=== PATIENT | male | born 1950 | race Caucasian/White ===

== ENCOUNTER 2019-05-17 06:57 | Inpatient (IN) | payer MEDICARE ==
[2019-05-17] VITALS (7 sets, daily range): BP systolic 122–145; BP diastolic 53–82
[~2019-05-17] VITALS: Ht 172.7 cm; Wt 59.9 kg
[2019-05-17 07:40] LABS: BASO # 0.1 10*3/uL (0.0-0.1); BASO % 1.3 % (0.0-1.0); EOS # 0.1 10*3/uL (0.0-0.4); EOS % 1.5 % (1.0-4.0); HEMATOCRIT 45.2 % (42.0-52.0); HEMOGLOBIN 14.4 g/dl (14.0-18.0); LYMPH # 1.7 10*3/uL (1.3-4.4); LYMPH % 30.8 % (27.0-41.0); MEAN CORPUSCULAR HGB 28.3 pg (27.0-31.0); MEAN CORPUSCULAR HGB CONC 31.9 g/dl (33.0-37.0); MONO # 0.4 10*3/uL (0.1-1.0); NEUT # 3.2 10*3/uL (2.3-7.9); NEUT % 59.2 % (47.0-73.0); PLATELET COUNT AUTOMATED 268 10*3/uL (130-400); RED BLOOD COUNT 5.08 10*6/uL (4.50-5.90); RED CELL DISTRI WIDTH 13.5 % (0-14.5); WHITE BLOOD COUNT 5.4 10*3/uL (4.8-10.8)
[2019-05-17 07:50] LABS: ACT PARTIAL THROMBO TIME 28.2 SECONDS (20.0-32.1)
[2019-05-17 07:59] LABS: ALBUMIN 3.9 gm/dl (3.1-4.5); ALKALINE PHOSPHATASE 48 U/L (45-117); BUN 17 mg/dl (7-24); CHLORIDE 107 mmol/L (98-107); CREATININE 1.17 mg/dL (0.70-1.30); LIPASE 213 U/L (73-393); POTASSIUM 3.8 mmol/L (3.5-5.1); SGOT/AST 19 IU/L (3-35); SGPT/ALT 25 U/L (12-78); SODIUM 139 mmol/L (136-145)
[2019-05-17 08:04] LABS: TROPONIN I < 0.015 ng/ml (<0.045)
[2019-05-17] MEDS ORDERED: ATENOLOL25 MG PO (09:53)
[2019-05-18] VITALS: BP 137/80
[2019-05-18 06:48] LABS: BASO # 0.1 10*3/uL (0.0-0.1); BASO % 1.2 % (0.0-1.0); EOS # 0.2 10*3/uL (0.0-0.4); EOS % 3.7 % (1.0-4.0); HEMATOCRIT 40.7 % (42.0-52.0); LYMPH # 1.6 10*3/uL (1.3-4.4); LYMPH % 24.7 % (27.0-41.0); MEAN CELL VOLUME 89.1 fl (80.0-94.0); MEAN CORPUSCULAR HGB 28.4 pg (27.0-31.0); MEAN CORPUSCULAR HGB CONC 31.9 g/dl (33.0-37.0); MEAN PLATELET VOLUME 10.3 fl (9.6-12.3); MONO # 0.5 10*3/uL (0.1-1.0); MONO % 7.8 % (3.0-9.0); NEUT # 4.1 10*3/uL (2.3-7.9); NEUT % 62.3 % (47.0-73.0); PLATELET COUNT AUTOMATED 253 10*3/uL (130-400); RED BLOOD COUNT 4.57 10*6/uL (4.50-5.90); RED CELL DISTRI WIDTH 13.5 % (0-14.5); WHITE BLOOD COUNT 6.6 10*3/uL (4.8-10.8)
[2019-05-18 07:08] LABS: ALBUMIN 3.4 gm/dl (3.1-4.5); ALKALINE PHOSPHATASE 51 U/L (45-117); BUN 12 mg/dl (7-24); CHLORIDE 110 mmol/L (98-107); CHOLESTEROL 218 mg/dL (<200); CREATININE 0.85 mg/dL (0.70-1.30); HDL CHOLESTEROL 40 mg/dl (40-60); LDL CHOLESTEROL 154 mg/dL (9-159); POTASSIUM 3.7 mmol/L (3.5-5.1); SGOT/AST 16 IU/L (3-35); SGPT/ALT 19 U/L (12-78); SODIUM 140 mmol/L (136-145); TOTAL PROTEIN 6.7 gm/dL (6.4-8.2); TRIGLYCERIDES 121 mg/dl (<150); VLDL CHOLESTEROL 24 mg/dL (6-40)
[2019-05-18 09:00] VITALS: BP 140/92
== END 2019-05-18 10:00 | disposition home or self-care (01) | DRG 641 ==
LOC: ED 06:57 → EDHOLD 08:30 → 4E 08:30
PROVIDERS: Emergency Medicine; Student in an Organized Health Care Education/Training Program; ADMIT Internal Medicine
DX: E86.0 Dehydration (principal); E44.0 Moderate protein-calorie malnutrition; I95.1 Orthostatic hypotension; J43.9 Emphysema, unspecified; R73.9 Hyperglycemia, unspecified; E83.41 Hypermagnesemia; I10 Essential (primary) hypertension; Z87.891 Personal history of nicotine dependence; Z82.49 Family history of ischemic heart disease and other diseases of the circulatory system; Z79.899 Other long term (current) drug therapy; Z68.20 Body mass index [BMI] 20.0-20.9, adult

== ENCOUNTER 2019-12-25 13:14 | Emergency (ER) | payer MEDICARE ==
[~2019-12-25] VITALS: Wt 61.2 kg
[~2019-12-25 13:14] MED LIST: ATENOLOL25 MG PO
[2019-12-25 14:31] LABS: BILIRUBIN NEGATIVE; BLOOD NEGATIVE (NEGATIVE); CLARITY CLEAR (CLEAR); COLOR YELLOW (YELLOW); GLUCOSE NEGATIVE; KETONE 1+; LEUKO ESTERASE 2+ (NEGATIVE); NITRITE NEGATIVE (NEGATIVE); PH 7.5 (4.5-8.0); SPECIFIC GRAVITY 1.015 (1.001-1.030)
[2019-12-25 14:39] LABS: BACTERIA 1+; EPITHELIAL CELLS 0-2; RBC 0-2 rbc/hpf (0-2); WBC 16-20 wbc/hpf (0-5)
== END 2019-12-25 17:22 | disposition short-term general hospital (02) ==
LOC: ED 13:14
PROVIDERS: Nurse Practitioner Family
DX: S22.32XA Fracture of one rib, left side, initial encounter for closed fracture (principal); J93.9 Pneumothorax, unspecified; W11.XXXA Fall on and from ladder, initial encounter; Y93.89 Activity, other specified; Y92.89 Other specified places as the place of occurrence of the external cause; Y99.8 Other external cause status

== ENCOUNTER 2020-01-18 16:39 | Observation (INO) | payer MEDICARE ==
[~2020-01-18] VITALS: Ht 172.7 cm; Wt 59.1 kg
[2020-01-18 16:48] VITALS: BP 137/83
[2020-01-18 17:52] LABS: BASO # 0.1 10*3/uL (0.0-0.1); BASO % 0.5 % (0.0-1.0); EOS % 0.2 % (1.0-4.0); LYMPH # 0.9 10*3/uL (1.3-4.4); LYMPH % 6.6 % (27.0-41.0); MEAN CELL VOLUME 87.2 fl (80.0-94.0); MEAN CORPUSCULAR HGB 27.5 pg (27.0-31.0); MEAN CORPUSCULAR HGB CONC 31.5 g/dl (33.0-37.0); MEAN PLATELET VOLUME 8.6 fl (9.6-12.3); MONO # 0.8 10*3/uL (0.1-1.0); MONO % 5.8 % (3.0-9.0); NEUT # 12.3 10*3/uL (2.3-7.9); NEUT % 86.4 % (47.0-73.0); PLATELET COUNT AUTOMATED 493 10*3/uL (130-400); RED BLOOD COUNT 4.47 10*6/uL (4.50-5.90); RED CELL DISTRI WIDTH 12.8 % (0-14.5); WHITE BLOOD COUNT 14.2 10*3/uL (4.8-10.8)
[2020-01-18 18:02] LABS: ACT PARTIAL THROMBO TIME 30.8 SECONDS (20.0-32.1)
[2020-01-18 18:08] LABS: ALBUMIN 3.1 gm/dl (3.1-4.5); ALKALINE PHOSPHATASE 207 U/L (45-117); BUN 12 mg/dl (7-24); CHLORIDE 101 mmol/L (98-107); CREATININE 0.87 mg/dL (0.70-1.30); LIPASE 183 U/L (73-393); POTASSIUM 3.6 mmol/L (3.5-5.1); SGOT/AST 14 IU/L (3-35); SGPT/ALT 28 U/L (12-78); SODIUM 135 mmol/L (136-145); TOTAL PROTEIN 8.3 gm/dL (6.4-8.2)
[2020-01-18 18:13] LABS: TROPONIN I < 0.015 ng/ml (<0.045)
--- NOTE | 2020-01-18 19:14 | NUR ---
REPORT FROM LASHONDA. PT. RESTING IN BED, IN NO DISTRESS. CALL LIGHT IN REACH, WILL CONT TO MONITOR.
[2020-01-18 19:44] LABS: BILIRUBIN Negative; BLOOD Negative (NEGATIVE); CLARITY Clear (CLEAR); COLOR Dark Yellow (YELLOW); GLUCOSE Negative; KETONE Negative; LEUKO ESTERASE Negative (NEGATIVE); NITRITE Negative (NEGATIVE); SPECIFIC GRAVITY 1.025 (1.001-1.030)
[2020-01-18 19:50] LABS: BACTERIA TRACE; EPITHELIAL CELLS 0-2; MUCOUS 2+; WBC 0-2 wbc/hpf (0-5)
[2020-01-18 20:00] VITALS: BP 142/84
--- NOTE | 2020-01-18 21:01 | NUR ---
PT. RESTING IN BED. AT BEDSIDE. CALL LIGHT IN REACH. WILL CONT TO MONITOR. IN NO DISTRESS AT THIS TIME. RR EASY AND NON LABORED.
--- NOTE | 2020-01-18 21:48 | NUR ---
PT. UP AND TO RESTROOM
[2020-01-18 22:40] VITALS: BP 142/84
--- NOTE | 2020-01-18 22:50 | NUR ---
Time: 2239 A 69 year old MALE admitted to [facility] under services of THAI VILLEGAS DO. Pt. arrived via stretcher from [place]. Chief complaint: fatigue, numbness. CEASAR ALVAREZ
--- NOTE | 2020-01-19 04:00 | NUR ---
PATIENT SLEEPING, NO SIGNS OF DISTRESS. RESPIRATIONS EASY.NON LABORED. BED IN LOWEST POSITION, CALL LIGHT WITHIN REACH. WILL CONTINUE TO MONITOR.
[2020-01-19 06:03] LABS: BUN 10 mg/dl (7-24); CHLORIDE 103 mmol/L (98-107); CREATININE 0.72 mg/dL (0.70-1.30); POTASSIUM 3.6 mmol/L (3.5-5.1); SODIUM 136 mmol/L (136-145)
[2020-01-19 06:06] LABS: HEMATOCRIT 36.9 % (42.0-52.0); MEAN CELL VOLUME 86.2 fl (80.0-94.0); MEAN CORPUSCULAR HGB 27.3 pg (27.0-31.0); MEAN CORPUSCULAR HGB CONC 31.7 g/dl (33.0-37.0); MEAN PLATELET VOLUME 9.2 fl (9.6-12.3); PLATELET COUNT AUTOMATED 482 10*3/uL (130-400); RED BLOOD COUNT 4.28 10*6/uL (4.50-5.90); WHITE BLOOD COUNT 15.4 10*3/uL (4.8-10.8)
[2020-01-19 06:11] LABS: THYROID STIM HORMONE (HS) 0.613 uIU/ml (0.358-4.75)
[2020-01-19 06:30] LABS: VITAMIN D, 25-HYDROXY 35.7 ng/mL (30-100)
[2020-01-19 06:39] LABS: PLATELET SUFFICIENCY HIGH (NORMAL); TOTAL CELLS COUNTED 100 #CELLS
[2020-01-19 08:00] VITALS: BP 136/76
--- NOTE | 2020-01-19 09:47 | NUR ---
Makeup Instructor in to talk to patient. Patient states lives at HOME with . There are 12 steps in the home. Physician: LASHONDA DAVILA Pharmacy: [facility] Home health services: NONE Patient's level of ADLs: INDEPENDENT Patient has working utilities: YES DME: [facility] IF NEEDED Follow-up physician's appointment after d/c: WILL BE MADE BY RN HOSPITALIST COORDINATOR Does patient want to access PORTAL?: NO Discharge plan PATIENT LIVES AT HOME WTH HIS . PATIENT STATES HE WILL RETURN HOME WHEN DISCUSSING HOME HEALTH AND SNF. PATIENT STATES HIS WILL TRANSPORT HIM WHEN HE IS DISCHARGED. PATIENT HAS NO NEEDS AT THIS TIME. SHALONDA RIDLEY
[2020-01-19 12:00] VITALS: BP 126/68
[2020-01-19 16:00] VITALS: BP 154/79
[2020-01-19 20:00] VITALS: BP 116/84
[2020-01-20] VITALS: BP 135/85
--- NOTE | 2020-01-20 04:43 | NUR ---
PATIENT SLEEPING; SNORING RESPS ON ROOM AIR, EASY AND REGULAR. WILL CONT TO MONITOR/
[2020-01-20 06:05] LABS: ALBUMIN 2.7 gm/dl (3.1-4.5); ALKALINE PHOSPHATASE 200 U/L (45-117); BUN 14 mg/dl (7-24); CHLORIDE 107 mmol/L (98-107); POTASSIUM 3.4 mmol/L (3.5-5.1); SGOT/AST 19 IU/L (3-35); SGPT/ALT 32 U/L (12-78); SODIUM 139 mmol/L (136-145); TOTAL PROTEIN 7.6 gm/dL (6.4-8.2)
[2020-01-20 06:08] LABS: BASO # 0.1 10*3/uL (0.0-0.1); BASO % 0.7 % (0.0-1.0); EOS # 0.1 10*3/uL (0.0-0.4); EOS % 0.7 % (1.0-4.0); HEMATOCRIT 38.2 % (42.0-52.0); LYMPH # 1.6 10*3/uL (1.3-4.4); LYMPH % 13.1 % (27.0-41.0); MEAN CORPUSCULAR HGB 27.3 pg (27.0-31.0); MEAN CORPUSCULAR HGB CONC 31.7 g/dl (33.0-37.0); MEAN PLATELET VOLUME 9.2 fl (9.6-12.3); MONO % 8.5 % (3.0-9.0); NEUT # 9.1 10*3/uL (2.3-7.9); NEUT % 76.7 % (47.0-73.0); PLATELET COUNT AUTOMATED 469 10*3/uL (130-400); RED BLOOD COUNT 4.44 10*6/uL (4.50-5.90); RED CELL DISTRI WIDTH 12.8 % (0-14.5); WHITE BLOOD COUNT 11.8 10*3/uL (4.8-10.8)
--- NOTE | 2020-01-20 07:45 | NUR ---
24 HR chart check completed.
[2020-01-20 08:00] VITALS: BP 133/80
--- NOTE | 2020-01-20 08:30 | NUR ---
RESTING IN BED WITH NO DISTRESS NOTED. RESPIRATIONS EASY. LUNGS DIMINISHED, CLEAR. PULSE OX 97% RA. DENIES SOB. CALL LIGHT WITHIN REACH. NO VOICED COMPLAINTS
[2020-01-20] MEDS ORDERED: DOXYCYCLINE100 MG PO (10:09)
--- NOTE | 2020-01-20 11:00 | NUR ---
Discharge instructions reviewed with patient. Patient receptive and verbalizes understanding. Written instructions given to patient. OFFERED WC FOR D/C, PATIENT DECLINED STATING HE WOULD PREFER TO AMBULATE OFF FLOOR. WAITING AT ENTRANCE LESLY AVILA
--- NOTE | 2020-01-21 08:20 | NUR ---
Nursing referral received and chart reviewed. Patient discharged from hospital before OT evaluation could be completed. Eve Francisco OTR/l
== END 2020-01-20 11:00 | disposition home or self-care (01) ==
LOC: ED 16:39 → EDHOLD 22:06 → 4E 22:06 → EDHOLD 22:06 → 4E 22:52
PROVIDERS: Nurse Practitioner Family; Student in an Organized Health Care Education/Training Program; ADMIT Emergency Medicine; ATTEND Emergency Medicine
DX: J18.9 Pneumonia, unspecified organism (principal); R53.1 Weakness; R53.83 Other fatigue; R20.2 Paresthesia of skin; D72.829 Elevated white blood cell count, unspecified; D64.9 Anemia, unspecified; E87.1 Hypo-osmolality and hyponatremia; E83.41 Hypermagnesemia; D47.3 Essential (hemorrhagic) thrombocythemia; R74.8 Abnormal levels of other serum enzymes; R79.82 Elevated C-reactive protein (CRP); E44.1 Mild protein-calorie malnutrition; I71.4 Abdominal aortic aneurysm, without rupture; N28.0 Ischemia and infarction of kidney; I10 Essential (primary) hypertension; J44.9 Chronic obstructive pulmonary disease, unspecified; R73.9 Hyperglycemia, unspecified

== ENCOUNTER 2022-12-18 05:48 | Emergency (ER) | payer MEDICARE ==
[~2022-12-18] VITALS: Ht 172.7 cm; Wt 60.3 kg
[~2022-12-18 05:48] MED LIST changes: +CLOPIDOGREL75 MG PO; +CRESTOR20 M1 PO; +DOXYCYCLINE100 MG PO; +LISINOPRIL5 MG PO
[2022-12-18 06:31] LABS: BASO # 0.1 10*3/uL (0.0-0.1); BASO % 1.2 % (0.0-1.0); EOS % 0.2 % (1.0-4.0); HEMATOCRIT 41.6 % (42.0-52.0); LYMPH # 0.6 10*3/uL (1.3-4.4); LYMPH % 14.6 % (27.0-41.0); MEAN CELL VOLUME 85.2 fl (80.0-94.0); MEAN CORPUSCULAR HGB 28.1 pg (27.0-31.0); MEAN CORPUSCULAR HGB CONC 32.9 g/dl (33.0-37.0); MEAN PLATELET VOLUME 9.6 fl (9.6-12.3); MONO # 0.5 10*3/uL (0.1-1.0); MONO % 13.1 % (3.0-9.0); NEUT # 2.9 10*3/uL (2.3-7.9); NEUT % 70.7 % (47.0-73.0); PLATELET COUNT AUTOMATED 186 10*3/uL (130-400); RED BLOOD COUNT 4.88 10*6/uL (4.50-5.90); RED CELL DISTRI WIDTH 14.3 % (0-14.5); WHITE BLOOD COUNT 4.1 10*3/uL (4.8-10.8)
[2022-12-18 06:46] LABS: ACT PARTIAL THROMBO TIME 30.6 SECONDS (20.0-32.1)
[2022-12-18 07:02] LABS: ALKALINE PHOSPHATASE 63 U/L (46-116); BUN 14 mg/dl (9-23); CHLORIDE 104 mmol/L (98-107); LIPASE 66 U/L (12-53); POTASSIUM 3.8 mmol/L (3.4-5.1); SGPT/ALT 20 U/L (10-49); TOTAL PROTEIN 7.6 gm/dL (6.0-8.0)
[2022-12-18] MEDS ORDERED: TRAMADOL HCL50 MG PO (07:48)
[2022-12-18] MEDS ORDERED: TRAZODONE50 MG PO (07:48)
== END 2022-12-18 07:57 | disposition home or self-care (01) ==
LOC: ED 05:48
PROVIDERS: Internal Medicine
DX: R42 Dizziness and giddiness (principal); G47.00 Insomnia, unspecified; M79.606 Pain in leg, unspecified; I10 Essential (primary) hypertension; R55 Syncope and collapse; Z95.5 Presence of coronary angioplasty implant and graft; Z98.890 Other specified postprocedural states; Z87.891 Personal history of nicotine dependence